=== PATIENT | female | born 1965 | race Two or more races ===

== ENCOUNTER 2017-10-13 15:06 | Emergency (ER) | payer OTHER ==
[~2017-10-13] VITALS: Ht 157.5 cm; Wt 54.4 kg
[2017-10-13 15:24] VITALS: BP 123/72
[2017-10-13] MEDS ORDERED: diphenhdrAMINE HCL 25 MG CAP PO ONE (16:30)
[2017-10-13] MEDS ORDERED: methylPREDNISolone SOD SUCC 125 MG/2 ML VL IM ONE (16:30)
== END 2017-10-13 17:26 | disposition home or self-care (01) ==
LOC: ER 15:06
DX: T78.40XA Allergy, unspecified, initial encounter (principal); Z90.49 Acquired absence of other specified parts of digestive tract; X58.XXXA Exposure to other specified factors, initial encounter
CPT/HCPCS: 96372; 99283; J2930

== ENCOUNTER 2018-04-26 12:13 | Emergency (ER) | payer OTHER ==
[~2018-04-26] VITALS: Ht 152.4 cm; Wt 53.5 kg
[2018-04-26 12:32] VITALS: BP 130/75
[2018-04-26] MEDS ORDERED: methylPREDNISolone SOD SUCC 125 MG/2 ML VL IM ONE (14:15)
== END 2018-04-26 14:31 | disposition home or self-care (01) ==
LOC: ER 12:18
DX: T78.1XXA Other adverse food reactions, not elsewhere classified, initial encounter (principal); L29.9 Pruritus, unspecified; R22.0 Localized swelling, mass and lump, head; X58.XXXA Exposure to other specified factors, initial encounter
CPT/HCPCS: 96372; 99283; J2930

== ENCOUNTER 2024-02-10 12:31 | Emergency (ER) | payer SELFPAY ==
[~2024-02-10] VITALS: Ht 152.4 cm; Wt 59.0 kg
--- NOTE | 2024-02-10 14:08 | DVH ---
CLINICAL INDICATION: FALL R/O FX Left wrist TECHNIQUE: 3 radiographic views of the left wrist were obtained. Comparison: None FINDINGS/IMPRESSION: Minimally displaced impacted intra-articular fracture distal radius. There is also a minimally displa viviana fracture of the tip of the styloid process of the ulna. The visualized joint space is well maintained. The alignment is anatomical. There is no radiopaque foreign body.
--- NOTE | 2024-02-10 14:50 | ED.PDOC ---
History of Present Illness HPI Comments 58-year-old female who comes in with chief complaint of injury to the left wrist. The patient states that she was trying to climb up on a chair at approximately 3:00 a.m. in the morning and she fell down. The patient injured her left wrist. The patient states the pain is about an 8/10. She denies any other complaints at this time. Chief Complaint: Fall Injury Time Seen by MD: 14:24 Primary Care Provider: NONE Reviewed Notes: Nurses Notes, Medications, Allergies (No allergies to medications) Allergies: Coded Allergies: NO KNOWN ALLERGIES (Unverified , 10/13/17) Home Meds Active Scripts Hydrocodone-Acetaminophen (Hydrocodone Bitartrate/AC 5-325 mg) 1 Tab Tab, 1 TAB PO Q8HP PRN for 7 Days, #21 TAB Prov:FLOYD DEL CID MD 02/10/24 Information Source: Patient Mode of Arrival: Ambulatory Severity: Moderate Timing: Hours Duration: Since onset Prehospital treatment: None Location: Left wrist pain with swelling and decreased range of motion Past Medical History PAST MEDICAL HISTORY: Denies Surgical History: Cholecystectomy, CRIB ATTENDANT History: No Pertinent CRIB ATTENDANT History Family History Family History: Family hx of Cancer, Family hx of heart ofelia Social History Smoker: Non-Smoker Alcohol: Denies ETOH Use Drugs: Denies Drug Use Lives In: Home Constitutional: denies: chills, diaphoresis, fatigue, fever, malaise, sweats, weakness, others EENTM: denies: blurred vision, double vision, ear bleeding, ear discharge, ear drainage, ear pain, ear ringing, eye pain, eye redness, hearing loss, mouth pain, mouth swelling, nasal discharge, nose bleeding, nose congestion, nose pain, photophobia, tearing, throat pain, throat swelling, voice changes, others Respiratory: denies: cough, hemoptysis, orthopnea, SOB at rest, shortness of breath, SOB with excertion, stridor, wheezing, others Cardiovascular: denies: chest pain, dizzy spells, diaphoresis, Dyspnea on exertion, edema, irregular heart beat, left arm pain, lightheadedness, palpitations, PND, syncope, others Gastrointestinal: denies: abdomen distended, abdominal pain, blood streaked bowels, constipated, diarrhea, dysphagia, difficulty swallowing, hematemesis, m carlos manuel, nausea, poor appetite, poor fluid intake, rectal bleeding, rectal pain, vomiting, others Genitourinary: denies: abnormal vagina bleeding, burning, dyspareunia, dysuria, flank pain, frequency, hematuria, incontinence, pain, , vagina discharge, urgency, others Neurological: denies: dizziness, fainting, headache, left sided numbness, left sided weakness, numbness, paresthesia, pre-existing deficit, right sided numbness, right sided weakness, seizure, speech problems, tingling, tremors, weakness, others Musculoskeletal: reports: others (Wrist pain and swelling); denies: back pain, gout, joint pain, joint swelling, muscle pain, muscle stiffness, neck pain Integumetry: denies: bruises, change in color, change in hair/nails, dryness, laceration, lesions, lumps, rash, wounds, others Allergic/Immunocompromised: denies: Difficulty Healing, Frequent Infections, Hives, Itching, others Hematologic/Lymphatic: denies: anemia, blood clots, easy bleeding, easy bruising, swollen glands, others Endocrine: denies: excessive hunger, excessive sweating, excessive thirst, excessive urination, flushing, intolerance to cold, intolerance to heat, unexplained weight gain, unexplained weight loss, others Psychiatric: denies: anxiety, bipolar disorder, depression, hopeless, panic disorder, schizophrenia, sleepless, suicidal, others Physical Exam General Appearance: Mild Distress HEENT: Normal ENT Inspection, Pharynx Normal, TMs Normal Neck: Full Range of Motion, Non-Tender, Normal, Normal Inspection Respiratory: Chest Non-Tender, Lungs Clear, No Accessory Muscle Use, No Respiratory Distress, Normal Breath Sounds Cardiovascular: No Edema, No JVD, No Murmur, No Gallop, Normal Peripheral Pulses, Regular Rate/Rhythm Breast Exam: Deferred Gastrointestinal: No Organomegaly, Non Tender, No Pulsatile Mass, Normal Bowel Sounds, Soft Genitalia: Deferred Pelvic: Deferred Rectal: Deferred Extremities: No calf tenderness, Normal capillary refill, No pedal edema Musculoskeletal : Location: Left Apperance: Swelling, Limited ROM, Tenderness: Moderate Neurologic: Alert, proof reader II-XII nml as Tested, No Motor Deficits, Normal Affect, Normal Mood, No Sensory Deficits Cerebellar Function: Normal Reflexes: Normal Skin: Dry, Normal Color, Warm Lymphatic: No Adenopathy Was a procedure done? Was a procedure done?: No Differential Dx Considerations may include: Fracture, strain, contusion X-Ray, Labs, Meds, VS Vital Signs Date Time Temp Pulse Resp B/P (MAP) Pulse Ox O2 Delivery O2 Flow Rate FiO2 02/10/24 15:01 Room Air* 0 21 02/10/24 14:54 97.7 63 16 111/55 (73) 97 97.7 02/10/24 13:00 97.7 66 16 110/64 (79) 98 Current Medications Medications (Trade) Dose Ordered Sig/Ashley Route Start Time Stop Time Status Last Admin Acetaminophen/ Hydrocodone Bitart ([place] 5/325MG Tab) 1 tab ONCE ONCE PO 02/10/24 14:45 02/10/24 14:46 DC 02/10/24 14:57 X-ray of the left wrist shows:FINDINGS/IMPRESSION: Minimally displaced impacted intra-articular fracture distal radius. There is also a minimally displaced fracture of the tip of the styloid process of the ulna. The visualized joint space is well maintained. The alignment is anatomical. There is no radiopaque foreign body. The patient was placed in a sugar-tong splint. The patient will follow up with the primary care doctor for a referral to the orthopedic surgeon The patient was given [place] here in the emergency department's The patient was being given prescription of [place] We discussed the findings with the patient and she is in agreement with the management. Images Reviewed?: Images reviewed and evaluated by me Time of 1ST Reevaluation: 14:50 Reevaluation 1ST: Unchanged Patient Education/Counseling: Diagnosis, Treatment, Prognosis, Need For Follow Up Family Education/Counseling: No Family Present Departure 1 Departure Time of Disposition: 15:08 Impression: Primary Impression: Left wrist fracture Qualified Codes: S62.102A - Fracture of unspecified carpal bone, left wrist, initial encounter for closed fracture Additional Impression: History of fall Disposition: HOME / SELF CARE / HOMELESS Condition: Fair e-Prescriptions Hydrocodone-Acetaminophen (Hydrocodone Bitartrate/AC 5-325 mg) 1 Tab Tab 1 TAB PO Q8HP PRN for 7 Days, #21 TAB Prov: FLOYD DEL CID MD 02/10/24 Discharged With: Self Critical Care Note Critical Care Time?: No Stability Stability form required: No Heart Score Heart Score: Heart Score Response (Comments) Value History N/A 0 EKG N/A 0 Age N/A 0 Risk Factors N/A 0 Troponin N/A 0 Total 0 FLOYD DEL CID MD Feb 10, 2024 14:50
[2024-02-10 14:54] VITALS: BP 111/55; PULSE 63; RESP 16; TEMP 97.7; O2SAT 97
[2024-02-10] MEDS: HYDROcodone-ACET 5/325MG TAB PO ONE (14:57)
[2024-02-10] MEDS ORDERED: HYDR-4902 PO (15:10)
== END 2024-02-10 15:46 | disposition home or self-care (01) ==
LOC: ER 12:35
DX: S52.692A Other fracture of lower end of left ulna, initial encounter for closed fracture (principal); Z90.49 Acquired absence of other specified parts of digestive tract; Z98.890 Other specified postprocedural states; Y93.31 Activity, mountain climbing, rock climbing and wall climbing; Y93.89 Activity, other specified; Y92.89 Other specified places as the place of occurrence of the external cause; Y99.8 Other external cause status
CPT/HCPCS: 29125; 73110